=== PATIENT | female | born 1955 | race Caucasian/White ===

== ENCOUNTER → 2018-04-07 | Outpatient (CLI) | payer OTHER ==
--- NOTE | 2018-04-07 16:01 | 2DMMODE ---
[place] [address] 2 D/M-MODE ECHOCARDIOGRAM Name: KIMCELIA L Room: [facility]#: [id number] Admission: 04/07/18 Attend Phys: Sara Ng Discharge: Date of : 57 Date of Service: 04/07/18 1601 Report #: [id number] THIS REPORT FOR: //name// APPROVED REPORT Study performed: 04/07/2018 14:53:07 EXAM: Comprehensive 2D, Doppler, and color-flow Echocardiogram Patient Location: Out-Patient Status: routine BSA: 2.09 HR: 75 bpm BP: 130/82 mmHg Other Information Study Quality: Good Indications Murmur 2D Dimensions LVEF(%): 62.03 (>50%) IVSd: 13.60 (7-11mm) LVOT Diam: 19.68 (18-24mm) LVDd: 39.36 mm PWd: 10.86 (7-11mm) Ascending Ao: 29.22 (22-36mm) LVDs: 26.41 (25-40mm) Aortic Root: 23.88 mm Molina's LVEF: 62.03 % Volumes Left Atrial Volume (Systole) LA ESV Index: 14.70 mL/m2 Aortic Valve AoV Peak Jaime.: 2.55 m/s AO Peak Gr.: 26.04 mmHg LVOT Max P.62 mmHg AO Mean Gr.: 15.18 mmHg LVOT Mean P.18 mmHg LVOT Max V: 1.19 m/s AO V2 VTI: 49.39 cm LVOT Mean V: 0.84 m/s OSMAR (VTI): 1.52 cm2 LVOT V1 VTI: 24.69 cm AI [place]: 1.99 m/s2 AI PHT: 585.45 [place] [address] 2 D/M-MODE ECHOCARDIOGRAM Name: CELIA ALVAREZ Room: [facility]#: [id number] Admission: 04/07/18 Attend Phys: Sara Ng Discharge: Date of : 57 Date of Service: 04/07/18 1601 Report #: [id number] E/A Ratio: 0.81 MV Decel. Time: 308.72 ms MV E Max Jaime.: 0.80 m/s MV PHT: 89.53 ms MVA (PHT): 2.46 cm2 TDI E/Lateral E': 8.89 E/Medial E': 8.89 Medial E' Jaime.: 0.09 m/s Lateral E' Jaime.: 0.09 m/s Pulmonary Valve PV Peak Jaime.: 1.19 m/s PV Peak Gr.: 5.68 mmHg Tricuspid Valve RAP Estimate: 5.00 mmHg TR Peak Gr.: 25.60 mmHg RVSP: 30.60 mmHg PA Pressure: 30.60 mmHg Left Ventricle The left ventricle is normal size. There is normal LV segmental wall motion. There is normal left ventricular wall thickness. Left ventricular systolic function is normal. The left ventricular ejection fraction is within the normal range. LVEF is 55-60%. Grade I - abnormal relaxation pattern. Right Ventricle The right ventricle is normal size. The right ventricular systolic function is normal. Atria The left atrium size is normal. The right atrium size is normal. Aortic Valve Aortic valve is mildly calcified. Mild aortic regurgitation. There is no aortic valvular stenosis. Mitral Valve The mitral valve is normal in structure. There is no mitral valve regurgitation noted. No evidence of mitral valve stenosis. Tricuspid Valve The tricuspid valve is normal in structure. Mild tricuspid regurgitation. estimated pa pressure 30 [place] [address] 2 D/M-MODE ECHOCARDIOGRAM Name: CELIA ALVAREZ Gabriel Room: [facility]#: [id number] Admission: 04/07/18 Attend Phys: Sara Ng Discharge: Date of : 57 Date of Service: 04/07/18 1601 Report #: [id number] Pulmonic Valve The pulmonary valve is normal in structure. Trace pulmonic regurgitation. Great Vessels The aortic root is normal in size. IVC is normal in size and collapses with >50% inspiration Pericardium There is no pericardial effusion. <Conclusion> LVEF is 55-60%. Mild aortic regurgitation. <ELECTRONICALLY SIGNED> By: Manuel Nino MD, FACC 04/07/18 1601 160 160 Manuel Nino MD, FACC /INF
== END ==
LOC: M.CRD 14:33
DX: I08.2 Rheumatic disorders of both aortic and tricuspid valves (principal)